=== PATIENT | male | born 1990 | race African-American/Black ===

== ENCOUNTER 2017-12-29 11:38 | Emergency (ER) | payer MEDICAID ==
[~2017-12-29] VITALS: Ht 180.3 cm; Wt 68.2 kg
[2017-12-29] MEDS: LIDOCAINE/PF 1% 2 ML VIAL INJ ONE (12:43)
[2017-12-29] MEDS: CefTRIAXone SODIUM 1 GM/VIAL IM ONE (12:43)
[2017-12-29] MEDS: IBUPROFEN 600 MG TABLET PO ONE (12:43)
[2017-12-29 13:20] VITALS: BP 127/79
== END 2017-12-29 13:29 | disposition home or self-care (01) ==
LOC: EMS 11:39
DX: S16.1XXA Strain of muscle, fascia and tendon at neck level, initial encounter (principal); L30.9 Dermatitis, unspecified; Z20.2 Contact with and (suspected) exposure to infections with a predominantly sexual mode of transmission; X50.9XXA Other and unspecified overexertion or strenuous movements or postures, initial encounter; Y93.89 Activity, other specified; Y92.89 Other specified places as the place of occurrence of the external cause; Y99.8 Other external cause status
CPT/HCPCS: 96372; 99283; J0696; J3490

== ENCOUNTER 2018-02-14 12:40 | Emergency (ER) | payer MEDICAID ==
[~2018-02-14] VITALS: Ht 180.3 cm; Wt 75.0 kg
[2018-02-14 12:44] VITALS: BP 122/79
[2018-02-14] MEDS ORDERED: AZITHROMYCIN 250 MG TABLET PO ONE (14:45)
[2018-02-14] MEDS ORDERED: LIDOCAINE/PF 1% 2 ML VIAL IM ONE (14:45)
[2018-02-14] MEDS ORDERED: CefTRIAXone SODIUM 1 GM/VIAL IM ONE (14:45)
== END 2018-02-14 16:06 | disposition home or self-care (01) ==
LOC: EMS 12:41
DX: S86.891A Other injury of other muscle(s) and tendon(s) at lower leg level, right leg, initial encounter (principal); S86.892A Other injury of other muscle(s) and tendon(s) at lower leg level, left leg, initial encounter; M21.42 Flat foot [pes planus] (acquired), left foot; M21.41 Flat foot [pes planus] (acquired), right foot; N34.2 Other urethritis; X58.XXXA Exposure to other specified factors, initial encounter; Y93.67 Activity, basketball; Y92.89 Other specified places as the place of occurrence of the external cause; Y99.8 Other external cause status
CPT/HCPCS: 96372; 99283; J0696; J3490